=== PATIENT | female | born 1955 | race Hispanic/Latino ===

== ENCOUNTER 2016-08-14 15:09 | Emergency (ER) | payer MEDICAID ==
[2016-08-14 15:38] VITALS: BMI 16.8
[2016-08-14 15:47] VITALS: BP 107/70; PULSE 69; RESP 17; TEMP 98.1; O2SAT 100
--- NOTE | 2016-08-14 15:48 | ED PDOC ---
Arrival/HPI - General Chief Complaint: Rib Injury Time Seen by Provider: 08/14/16 15:47 Historian: Patient - History of Present Illness Narrative History of Present Illness (Text): 08/14/16 15:48 60 y/o female, no pmh, nkda, c/o lt. rib injury and pain x 2 weeks. Pt. stated that she was vomiting about 2 weeks ago, slipped and hit the lt. lower rib on the edge of the toilet seat, no bruising, no hematuria, pain has decreased but not completely resolved, no bruising or discoloration, no dizziness, no chest pain or shortness of breath, no palpitation, no headache, no other medical or psychological complaints Past Medical History - Provider Review Nursing Documentation Reviewed: Yes - Musculoskeletal/Rheumatological Hx Osteoporosis: Yes - Psychiatric Hx Substance Use: No (former) - Surgical History Other/Comment: ectopic sx. colonoscopy Family/Social History - Physician Review Nursing Documentation Reviewed: Yes Family/Social History: Unknown Family HX Smoking Status: Smoker Currrent Status Unknown Hx Alcohol Use: No Hx Substance Use: No (former) Allergies/Home Meds Allergies/Adverse Reactions: Allergies No Known Allergies Allergy (Verified 08/14/16 15:38) Review of Systems - Review of Systems Constitutional: absent: Fatigue, Fevers Eyes: absent: Vision Changes ENT: absent: Hearing Changes Respiratory: absent: Cough Cardiovascular: absent: Chest Pain Gastrointestinal: absent: Abdominal Pain, Nausea, Vomiting Musculoskeletal: Myalgias. absent: Arthralgias, Back Pain, Neck Pain, Joint Swelling Skin: absent: Rash, Pruritis, Skin Lesions, Laceration, Abscess, Ulcer, Cellulitis Hemo/Lymphatic: absent: Adenopathy, Easy Bleeding, Easy Bruising Psychiatric: absent: Anxiety, Depression, Suicidal Ideation Physical Exam Vital Signs Reviewed: Yes Vital Signs Temp Pulse Resp BP Pulse Ox 08/14/16 15:46 98.1 F 69 17 107/70 100 Temperature: Afebrile Blood Pressure: Normal Pulse: Regular Respiratory Rate: Normal Appearance: Positive for: Well-Appearing, Non-Toxic, Comfortable Pain Distress: Mild Mental Status: Positive for: Alert and Oriented X 3 - Systems Exam Head: Present: Atraumatic, Normocephalic Pupils: Present: PERRL Extroacular Muscles: Present: EOMI Conjunctiva: Present: Normal Mouth: Present: Moist Mucous Membranes Pharnyx: No: ERYTHEMA, EXUDATE, TONSILS ENLARGED, Peritonsilar Swelling, Uvular Deviation, Muffled/Hoarse Voice, Strider, Soft Palate/Uvular Edema, Other Nose (Internal): Present: Normal Inspection, No Active Bleeding. No: Rhinorrhea , Septal Hematoma, Epistaxis Neck: Present: Normal Range of Motion Respiratory/Chest: Present: Clear to Auscultation, Good Air Exchange, Tender to Palpation (+ttp on the lt. lower anterior rib cage region with no ecchymosis or skin discoloration, no cva tenderness, FROM without limitation, sensation intact , motor 5/5. ). No: Respiratory Distress, Accessory Muscle Use, Wheezes, Decreased Breath Sounds, Rales, Retracting, Rhonchi, Tachypneic Cardiovascular: Present: Regular Rate and Rhythm, Normal S1, S2. No: Murmurs Abdomen: Present: Normal Bowel Sounds. No: Tenderness, Distention, Peritoneal Signs, Rebound, Guarding Back: Present: Normal Inspection Upper Extremity: Present: Normal Inspection. No: Cyanosis, Edema Lower Extremity: Present: Normal Inspection. No: Edema Neurological: Present: GCS=15, CN II-XII Intact, Speech Normal Skin: Present: Warm, Dry, Normal Color. No: Rashes Psychiatric: Present: Alert, Oriented x 3, Normal Insight, Normal Concentration Medical Decision Making ED Course and Treatment: 08/14/16 16:06 -chest x-ray/lt. rib xray -motrin -observe and reassess 08/14/16 17:25 -Chest and lt. rib xrays show no acute findings. -Pain decreased, no signs of intraabdominal injury from the physical examination , pain well control with the medication. -Discharge home with naproxen, incentive spirometer, lidoderm patch, ice compression, follow up with your own pmd and pain management within 2 days, return to the ER for anyt new or worsening signs or symptoms. - RAD Interpretation Radiology Orders: 08/14/16 15:55 CHEST TWO VIEWS (PA/LAT) [RAD] Stat RIBS LEFT [RAD] Stat Lt. rib xray: Chest x-ray: Curtain Worker: Radiologist - Medication Orders Current Medication Orders: Discontinued Medications Ibuprofen (Motrin Tab) 600 mg PO STAT STA Stop: 08/14/16 15:56 Lidocaine (Lidoderm) 1 ea TD STAT STA Stop: 08/14/16 15:59 - PA / DEPLOYMENT ENGINEER / Resident Statement MD/DO has reviewed & agrees with the documentation as recorded. Disposition/Present on Arrival - Present on Arrival Any Indicators Present on Arrival: No History of DVT/PE: No History of Uncontrolled Diabetes: No Urinary Catheter: No History of Decub. Ulcer: No History Surgical Site Infection Following: None - Disposition Have Diagnosis and Disposition been Completed?: Yes Diagnosis: Rib injury, Rib pain on left side Disposition: HOME/ ROUTINE Disposition Time: 17:27 Patient Plan: Discharge Condition: GOOD Discharge Instructions (ExitCare): Chest Pain (ED) Additional Instructions: Discharge home with naproxen, incentive spirometer, lidoderm patch, ice compression, follow up with your own pmd and pain management within 2 days, return to the ER for anyt new or worsening signs or symptoms. Prescriptions: Lidocaine 5% [Lidoderm] 1 patch TOP DAILY PRN #7 patch PRN Reason: Other Naproxen 500 mg PO BID PRN #20 tab PRN Reason: Other Referrals: PCP,NO [Primary Care Provider] - Follow up with primary Michel Jain MD [Staff Provider] - [place] up with primary [facility] [place] [facility] [place] - Follow up with primary Forms: WORK NOTE
[2016-08-14] MEDS ORDERED: Lidocaine 5% Patch TD STA (15:58)
--- NOTE | 2016-08-15 08:09 | RAD ---
HISTORY: lt. rib pain COMPARISON: No prior. TECHNIQUE: Chest PA and lateral FINDINGS: LUNGS: No evidence of focal infiltrate. Well defined round nodule at the mid right lung likely represent the breast nipple. PLEURA: No significant pleural effusion identified. No pneumothorax apparent. CARDIOVASCULAR: Normal. OSSEOUS STRUCTURES: No significant abnormalities. VISUALIZED UPPER ABDOMEN: Normal. OTHER FINDINGS: None. IMPRESSION: No radiographic evidence of acute disease. If indicated further assessment by CT may be obtained.
--- NOTE | 2016-08-15 08:19 | RAD ---
PROCEDURE: Radiographs of the Chest and Left Ribs. HISTORY: lt. rib injury x 2 weeks COMPARISON: None available. TECHNIQUE: Frontal radiograph of the chest and multiple oblique radiographs of the left ribs were obtained. FINDINGS: LEFT RIBS: There is acute slightly displaced fracture at the distal left rib LUNGS: Clear. PLEURA: No pneumothorax or pleural fluid. CARDIOVASCULAR: Normal sized heart. No pulmonary vascular congestion. OTHER FINDINGS: None. IMPRESSION: Acute fracture at the distal/anterior aspect of the left 8th rib.
== END 2016-08-14 17:50 | disposition home or self-care (01) ==
LOC: ED 15:09
DX: S29.9XXA Unspecified injury of thorax, initial encounter (principal); W01.198A Fall on same level from slipping, tripping and stumbling with subsequent striking against other object, initial encounter; R07.81 Pleurodynia

== ENCOUNTER 2016-09-03 07:44 | Emergency (ER) | payer MEDICAID ==
[2016-09-03 08:03] VITALS: BMI 17.9
--- NOTE | 2016-09-03 08:21 | ED PDOC ---
Arrival/HPI - General Chief Complaint: Back Pain Time Seen by Provider: 09/03/16 08:13 Historian: Patient - History of Present Illness Narrative History of Present Illness (Text): 09/03/16 08:05 A 60 year old female presents to the emergency room with complaints of right arm pain and back pain status post a mechanical fall yesterday. Patient reports that she fell backwards and tum[place] the [employer]. Patient notes that she hit her head. Patient denies any LOC, headaches, dizziness, chest pain, shortness of breath, vision changes, vomiting, or any other complaints. PMD: Dr. Ivory Time/Duration: 24 hours Symptom Onset: Sudden Symptom Course: Unchanged Quality: Other (Pain) Activities at Onset: Light Context: Walking Past Medical History - Provider Review Nursing Documentation Reviewed: Yes - Reproductive Menopause: Yes - Cardiac Hx Cardiac Disorders: No - Musculoskeletal/Rheumatological Hx Musculoskeletal Disorders: Yes Hx Osteoporosis: Yes Other/Comment: fractured ribs - Psychiatric Hx Psychophysiologic Disorder: Yes Hx Anxiety: Yes Hx Depression: Yes Hx Substance Use: Yes - Surgical History Other/Comment: ectopic sx. colonoscopy - Anesthesia Hx Anesthesia: Yes Hx Anesthesia Reactions: No Hx Malignant Hyperthermia: No Family/Social History - Physician Review Nursing Documentation Reviewed: Yes Family/Social History: No Known Family HX Smoking Status: Smoker Currrent Status Unknown Hx Alcohol Use: No Hx Substance Use: Yes Substance used: marijuana Allergies/Home Meds Allergies/Adverse Reactions: Allergies No Known Allergies Allergy (Verified 09/03/16 08:03) Review of Systems - Physician Review All systems were reviewed & negative as marked: Yes - Review of Systems Eyes: absent: Vision Changes Respiratory: absent: SOB Cardiovascular: absent: Chest Pain Musculoskeletal: Back Pain, Other (Right arm pain) Neurological: absent: Headache, Dizziness Physical Exam Vital Signs Temp Pulse Resp BP Pulse Ox 09/03/16 11:21 98.4 F 54 L 18 99 09/03/16 10:00 58 L 18 128/88 99 09/03/16 08:00 97.8 F 62 18 133/90 98 - Systems Exam Head: Present: Atraumatic, Normocephalic Pupils: Present: PERRL Extroacular Muscles: Present: EOMI Conjunctiva: Present: Normal Mouth: Present: Moist Mucous Membranes Neck: Present: Normal Range of Motion, MIDLINE TENDERNESS Respiratory/Chest: Present: Clear to Auscultation, Good Air Exchange. No: Respiratory Distress, Accessory Muscle Use Cardiovascular: Present: Regular Rate and Rhythm, Normal S1, S2. No: Murmurs Abdomen: Present: Normal Bowel Sounds. No: Tenderness, Distention, Peritoneal Signs Upper Extremity: Present: Normal ROM (Normal ROM of RUE (shoulder, elbow, and wrist). ), NORMAL PULSES, Swelling (Swelling of the 3rd and 4th PIP joints), Neurovascularly Intact. No: Cyanosis, Edema, Tenderness, Erythema Lower Extremity: Present: NORMAL PULSES, Normal ROM, Neurovascularly Intact. No : Edema, CALF TENDERNESS, Tenderness, Swelling Neurological: Present: GCS=15, CN II-XII Intact, Speech Normal, Motor Func Grossly Intact, Normal Sensory Function Skin: Present: Warm, Dry, Normal Color. No: Rashes Psychiatric: Present: Alert, Oriented x 3, Normal Insight, Normal Concentration Medical Decision Making ED Course and Treatment: Head CT Impression: As read by Dr. Nunez, normal CT of the head. Cervical Spine CT Impression: As read by Dr. Nunez, unremarkable CT of the cervical spine. Right Hand X-ray Impression: Normal Right Hand Radiographs. 09/03/16 11:57 ring was cut off and repeat xr w/out ring- no acute fracture - RAD Interpretation Radiology Orders: 09/03/16 08:16 CERVICAL SPINE W/O CONTRAST [CT] Stat HEAD W/O CONTRAST [CT] Stat HAND RIGHT 3 VIEWS [RAD] Stat 09/03/16 10:54 HAND RIGHT 3 VIEWS [RAD] Stat - Medication Orders Current Medication Orders: Discontinued Medications Ibuprofen (Motrin Tab) 800 mg PO STAT STA Stop: 09/03/16 08:17 Last Admin: 09/03/16 08:50 Dose: 800 MG MAR Pain/Vitals Document 09/03/16 08:50 BHAVIK (Rec: 09/03/16 09:24 BHAVIK [id number]) Pain Reassessment Is This A Pain ReAssessment? No Sleep Is patient sleeping during reassessment? No Presence of Pain Presence of Pain Yes - Scribe Statement The provider has reviewed the documentation as recorded by the Scribe Joe Forrest All medical record entries made by the Scribe were at my direction and personally dictated by me. I have reviewed the chart and agree that the record accurately reflects my personal performance of the history, physical exam, medical decision making, and the department course for this patient. I have also personally directed, reviewed, and agree with the discharge instructions and disposition. Disposition/Present on Arrival - Present on Arrival Any Indicators Present on Arrival: No History of DVT/PE: No History of Uncontrolled Diabetes: No Urinary Catheter: No History of Decub. Ulcer: No History Surgical Site Infection Following: None - Disposition Have Diagnosis and Disposition been Completed?: Yes Diagnosis: Hand contusion Disposition: HOME/ ROUTINE Disposition Time: 11:58 Patient Problems: Current Active Problems Problem Status Diagnosed Hand contusion Acute Condition: STABLE Discharge Instructions (ExitCare): Contusion in Adults (ED) Additional Instructions: Please follow up with your doctor. Return to the ER for any worsening symptoms or for any other concerns. Referrals: Mery Arias MD [Primary Care Provider] - Follow up with primary
--- NOTE | 2016-09-03 09:50 | CT ---
PROCEDURE: CT HEAD WITHOUT CONTRAST. HISTORY: fall down stairs COMPARISON: None available. TECHNIQUE: Axial computed tomography images were obtained through the head/brain without intravenous contrast. Radiation dose: Total exam DLP = 687 mGy-cm. This CT exam was performed using one or more of the following dose reduction techniques: Automated exposure control, adjustment of the mA and/or kV according to patient size, and/or use of iterative reconstruction technique. FINDINGS: HEMORRHAGE: No intracranial hemorrhage. BRAIN: No mass effect or edema. No atrophy or chronic microvascular ischemic changes. VENTRICLES: Unremarkable. No hydrocephalus. CALVARIUM: Unremarkable. PARANASAL SINUSES: Unremarkable as visualized. No significant inflammatory changes. MASTOID AIR CELLS: Unremarkable as visualized. No inflammatory changes. OTHER FINDINGS: None. IMPRESSION: Normal CT of the Head.
--- NOTE | 2016-09-03 09:53 | CT ---
PROCEDURE: CT Cervical Spine without contrast HISTORY: Fall down stairs COMPARISON: None available. TECHNIQUE: Axial computed tomography images were obtained of the cervical spine without the use of intravenous contrast. Coronal and sagittal reformatted images were created and reviewed. Radiation dose: Total exam DLP = 165 mGy-cm. This CT exam was performed using one or more of the following dose reduction techniques: Automated exposure control, adjustment of the mA and/or kV according to patient size, and/or use of iterative reconstruction technique. FINDINGS: VERTEBRAE: No fracture. Normal alignment. No destructive bony lesion. DISCS/SPINAL CANAL/NEURAL FORAMINA: No significant central canal or neural foraminal stenosis. Mild disc degeneration at C5-6 PARASPINAL SOFT TISSUES: Unremarkable. OTHER FINDINGS: None. IMPRESSION: Unremarkable CT of the cervical spine.
--- NOTE | 2016-09-03 10:36 | RAD ---
PROCEDURE: Right Hand Radiographs. HISTORY: fall COMPARISON: None. FINDINGS: BONES: Normal. No fracture. JOINTS: Normal. No osteoarthritic changes. SOFT TISSUES: Normal. OTHER FINDINGS: None. IMPRESSION: Normal right hand radiographs.
[2016-09-03 11:23] VITALS: RESP 18
--- NOTE | 2016-09-03 12:17 | RAD ---
PROCEDURE: Right Hand Radiographs. HISTORY: fall pain COMPARISON: None. FINDINGS: BONES: Normal. No fracture. JOINTS: Normal. No osteoarthritic changes. SOFT TISSUES: Normal. OTHER FINDINGS: None. IMPRESSION: Normal right hand radiographs.
[2016-09-03 12:24] VITALS: BP 129/77; PULSE 60; TEMP 98; O2SAT 100
== END 2016-09-03 12:24 | disposition home or self-care (01) ==
LOC: ED 07:44
DX: S60.221A Contusion of right hand, initial encounter (principal); W10.8XXA Fall (on) (from) other stairs and steps, initial encounter; Y92.512 Supermarket, store or market as the place of occurrence of the external cause